=== PATIENT | male | born 1970 ===

== ENCOUNTER 2024-06-27 13:59 | Outpatient (AMB) | payer MEDICAID, SELFPAY ==
--- NOTE | 2024-06-27 14:30 | HO.SPINEOV ---
Intake Visit Reasons: spinal stenosis Intake Note: Mr. Ling is here today c/o neck,elbow and knee pain. Stogy Roller Required: No Allergies No Known Allergies Allergy (Verified 06/27/24 14:31) Assessment & Plan Assessment & Plan (1) Cervical disc disorder: Code(s): M50.90 - Cervical disc disorder, unspecified, unspecified cervical region Category: Medical Plan Dear Dr Hampton, Thank you for referring Mr Ling to our office today. He is a 54-year-old gentleman with a history of an ACDF C6-7 by in 2016. He did well after that surgery. About a year ago he started to notice neck pain on both sides of his neck. He also has been noticing intermittent elbow pain. The 2 things do not connect to each other in the sense that it radiates down from his neck to his elbow. Rather, just seems to be too symptoms that present at the same time. It is more pronounced in the morning and in the evenings. Throughout the day seems to be okay. He has been on morphine extended release and morphine instant release to help. It does give him some relief. He has been on Advil with the as well. No conservative treatment attempted at this point. No myelopathic symptoms. PMH: Hypertension, hep C. He has not been treated yet with a hep C but anticipates doing this soon. He has had a number of different falls that have resulted in traumatic repairs of his right arm in his left hip. Former alcoholic. History of a rib resection and right arm reconstruction. Social hx: Used to be heavy drinker, quit many years ago, takes marijuana edibles daily. Has taken heroin in the past. He does not smoke. Medications: Morphine IR, morphine ER, Ambien and Advil Allergies: None Physical exam: Awake alert oriented no acute distress, has some reduced range of motion of his right shoulder. Strength is good, reflexes are normal, gait is intact. Imaging review: Cervical MRI shows postsurgical changes C6-7. He has a large disc osteophyte which looks chronic the right C4-5 foramen. There some milder changes at C3-4 and C5-6 but nothing significant. Impression: 54-year-old male presents with bilateral neck pain, intermittent pain into his elbows. The pain does not sound radicular. It does not come down from the neck and radiate into the arms. The 2 symptoms seem to be different things. Certainly his neck pain could just be due to the fact that he has postsurgical from an ACDF and he has some other arthritic changes. I am not sure what is causing the elbow pain. The symptoms at this point would not warrant surgery. He could certainly try other conservative measures such as PT, injections etc.. If he starts to develop true radiculopathy down the right arm where he has the nerve compression we can certainly see him back. Thank you for allowing us to care for your patient. The total time spent with this visit with this patient was 45 minutes reviewing history, physical exam, cervical spine imaging review, and implementation of treatment plan or further diagnostic testing Max Perez MD,PhD [facility] Coding Level of Care Code New Pt Level 4 (11132) Diagnoses Cervical disc disorder M50.90
== END 2024-06-27 14:47 | disposition home or self-care (01) ==
PROVIDERS: PCP Family Medicine; Referring Provider Family Medicine; Visit Provider Physician Assistant
DX: M50.90 Cervical disc disorder, unspecified, unspecified cervical region (principal)
CPT/HCPCS: 99204

== ENCOUNTER → 2024-06-27 13:59 | Outpatient (BNVA) | payer MEDICAID, SELFPAY | PROVIDERS: PCP Family Medicine; Visit Provider Physician Assistant | DX: M50.90 Cervical disc disorder, unspecified, unspecified cervical region (principal) | CPT/HCPCS: 99212 ==

== ENCOUNTER 2025-02-27 13:30 | Outpatient (AMB) | payer MEDICAID, SELFPAY ==
[2025-02-27 13:54] VITALS: BP 133/62; PULSE 82; O2SAT 97
--- NOTE | 2025-02-27 13:54 | A.OFFVIS_ITS ---
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 The patient's medical history includes significant trauma from a fall off erika in 2016, resulting in multiple fractures: left hip, shoulder, wrists, and some fingers, and required extensive post-fracture and rehabilitative care. His right shoulder impairment persists with chronic pain and dysfunction following surgery. He underwent anterior cervical discectomies for cervical radiculopathy, at C6-C7 [place] [address] Alaniz at [facility]. Despite surgical intervention, the patient reports continued neck and shoulder pain. His chronic pain syndrome is managed with high doses of opioids, including Fentanyl patches and Mophine IR for breakthrough pain, both prescribed by his PCP, with c ompliance achieved through regular monitoring. The patient additionally reports symptoms suggestive of peripheral neuropathy, although he is not diabetic, possibly due to previous nerve injuries. His mood remains mostly stable, supported by emotional connections with his pet. Patient reports current pain management regime (210 MME/day) has been effective, and allows to him to be less symptomatic and more functional. Patient reports he has tried and failed multiple non-opioid and opioid medications in the past, including Tylenol, Ibuprofen, oxycodone, gabapentin and other NSAIDs with minimal benefit. Patient has been on opioid therapy since 2016 due to traumatic injury s/p fall and multiple surgeries and currently engaged in physical therapy as part of recovery. His medical history also includes basal cell carcinoma left face s/p mohs surgery for which he plans future treatment. Denies any fever or chills, chest pain, shortness of breaths, weakness, constipation, nausea, sedation, dizziness, or urinary retention. Patient uses colace and dietary fiber for occasional constipation. - Onset: Chronic pain since the traumatic fall in 2016, with subsequent surgeries and injury. - Quality/Character: Persistent neck, shoulder, and hip pain. Morning/afternoon rated at 6/10 ad after medication 12/22. - Location: Primarily neck and right shoulder, with hip involvement. - Radiation: Neck pain radiating to the right shoulder. - Aggravating factors: Movements, walking, bending, lifting, twisting, changing positions, cold weather changes, cold applications - Alleviating factors: Opioid therapy, managed with 75 mg fentanyl patches every 72 hours and Morphine IR 15 mg BID prn. - Impact on activities: Significant, impacting daily activities and requiring opioid management. - Affect: Pain impacts the patient's mood, with depression somewhat managed by companionship of a pet. - Analgesia: Currently manages pain with fentanyl patches 75 mg replacing every three days, and 15 mg MSIR BID prn for breakthrough pain. Compliance is confirmed through regular assessments through PCP office. - Adverse Effects: No reported side effects with current medication regimen. - Activities of Daily Living: Pain affects daily function, limiting physical ability, such as shoulder movement. - Aberrant Drug Related Behaviors: No aberrant behaviors noted; compliance monitored through regular urine tests and pill counts. Oswestry Low Back Pain Disability Score=30 (severe disability) [facility] Medical History (Updated 02/28/25 @ 17:19 by LUZMA Rivera) Traumatic injury of hip Hip fracture, left Chronic neck pain Chronic pain of both shoulders Arthritis Dependent drug abuse Basal cell carcinoma of skin Viral hepatitis C Surgical History (Updated 02/28/25 @ 17:00 by LUZMA Rivera) History of cervical discectomy (~2015) H/O shoulder surgery Review of Systems Const Details: - Musculoskeletal: Reports chronic neck, shoulder, and hip pain. - Neurologic: Reports peripheral neuropathy symptoms; denies being diabetic. - Psychiatric: Reports stable mood with decreased depression from therapy pet. - Skin: Denies current symptoms, acknowledges history of basal cell carcinoma. - General: Patient reported quality of life improvements and better functioning on current opioid regime. All systems reviewed & are unremarkable except as noted in HPI and below Physical Exam Vital Signs: Last Vital Signs Pulse 82 02/27/25 13:54 BP 133/62 02/27/25 13:54 Pulse Ox 97 02/27/25 13:54 Oxygen Delivery Method Room Air 02/27/25 13:54 General: Appears afebrile. Alert and oriented. Mood and affect appropriate. Follows and participates in conversation appropriately. Respiratory effort is unlabored. No cough. Able to transition from sit to stand unassisted. Uses cane with ambulation. Ambulates with bilaterally normal heel strike and toe off. Back/Spine/Pelvis Other: Limited lumbar ROM due to pain. Antalgic, slow gait. Uses cane. Painful facet loading bilaterally. Lumbar flexion, axial rotations and extension reproduce moderate pain. Cervical Spine: loss of normal cervical lordosis, cervical muscular tenderness, pain with cervical ROM, Cervical spine scars present and No Cervical spine tenderness Thoracic/Lumbar Spine: thoracic and lumbar spine normal to inspection, pain with thoraco-lumbar ROM, No thoracic spinal tenderness and No lumbar spinal tenderness Sacroiliac joints: bilaterally tender to palpation Extrem General: Yes capillary refill normal, Yes no clubbing, cyanosis or edema and Yes no calf tenderness Right upper extremity: shoulder/upper arm (Well healed scar. Limited ROM due to pain.) Details: normal to inspection, tenderness (global right shoulder) and crepitus; no swelling, no ecchymosis and no unusual warmth Psych Appearance: grossly normal Mental Status: mental status grossly normal Speech and movement: Normal speech and movement present and Clear speech present Affect: normal affect Attitude: cooperative Thought process: Normal thought process present Thought content: Normal thought content present, suicidality (none), no hallucinations and No Depressive thoughts present Insight: Good insight present (Psych) Judgement: Good judgement present (Psych) Personal History of Substance Abuse: Prescription Drugs Age (Sp if 16-45): No History of Preadolescent Sexual Abuse: No Psychological Diseases: Depression Total Score: 6 Risk Category: Moderate Risk Copyright: [facility] Predicting aberrant behaviors Results Reviewed Results Reviewed: MR SHOULDER WITHOUT CONTRAST RIGHT 02/12/24 at [facility] INDICATION: Pain. Rule out avascular necrosis status post ORIF. Fall off erika 5 months ago. Surgery September 2020. COMPARISON: None. TECHNIQUE: Right shoulder MRI was performed without contrast and 6 diagnostic sequences were obtained. FINDINGS: There is plentiful susceptibility artifact from proximal humerus hardware which obscures surrounding anatomy and confounds interpretation. The acromioclavicular joint is congruent. Undersurface of the acromion is curved. Coracoclavicular and coracoacromial ligaments are intact. No fluid is present in the subacromial/subdeltoid bursa. Rotator cuff muscle bulk is preserved. The supraspinatus and infraspinatus tendon footprints are partially obscured by susceptibility artifact. No full-thickness or retracted tendon tear detected. Teres minor and subscapularis tendons are intact. Long head biceps tendon is not well identified, either obscured by artifact, torn or postoperative. The glenohumeral joint is congruent. No joint effusion. The humeral head exhibits flattening and deformity, presumed posttraumatic with areas of subchondral bone plate irregularity (coronal PD image 15). Superimposed superomedial humeral head osteonecrosis is suggested by areas of subarticular intermediate PD signal, though difficult to confirm. There is corresponding foci of partial-thickness and high-grade cartilage loss, particularly along the superomedial humeral head. Osteophytes are evident from the inferior medial aspect of the humeral head. Portions of the humeral head are obscured by susceptibility artifact. The anteroinferior glenoid exhibits posttraumatic deformity with hypertrophic change and spurring (coronal PD images 13 and 14). Anteroinferior glenoid does exhibit ill-definition of the cartilage, compatible with chondrosis. No labral detachment detected, though the anteroinferior labrum is degenerated. Bone signal is normal. No soft tissue collection. IMPRESSION: 1. Exam interpretation confounded by considerable susceptibility artifact from proximal humerus hardware. 2. 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 Superimposed superomedial humeral head avascular necrosis, while suspected, is difficult to confirm. Comparison radiographs and/or CT scan may be of utility. 3. The long head biceps tendon is not well identified, either postoperative, torn or obscured by artifact. 4. No full-thickness or retracted rotator cuff tear detected. Assessment & Plan Assessment & Plan (1) Chronic pain of both shoulders: Code(s): M25.511 - Pain in right shoulder; M25.512 - Pain in left shoulder; G89.29 - Other chronic pain Category: Medical (2) Chronic neck pain: Code(s): M54.2 - Cervicalgia; G89.29 - Other chronic pain Category: Medical (3) Chronic pain syndrome: Code(s): G89.4 - Chronic pain syndrome Category: Medical (4) Opioid contract exists: Code(s): Z79.891 - exterminator helper termite (current) use of opiate analgesic Category: Medical (5) Left hip pain: Code(s): M25.552 - Pain in left hip Category: Medical (6) Peripheral neuropathy: Code(s): G62.9 - Polyneuropathy, unspecified Category: Medical (7) Lumbar spondylosis: Code(s): M47.816 - Spondylosis without myelopathy or radiculopathy, lumbar region Category: Medical Plan Management of the patient's chronic pain will continue with the current opioid regimen of fentanyl patches and Morphine Immediate Release, emphasizing compliance monitored by drug screening and pill counts through his current PCP provider. MassPat reviewed and consistent with patient's history and PCP notes. Moderate Opioid Risk. No recent slip ups reported. Patient denies any recent history of early refill requests, lost prescriptions, or non-adherence to the treatment plan. Patient has Narcan at home. Current pain management regime (210 MME/day) has been effective for him, and allows to him to be less symptomatic and more functional. Patient states he has an increased ability to perform activities of daily living, interact socially and be more functional. The patient educated in great detail about opiate, its proper use and [place] State Law governing its proper use. He also uses marijuana through local dispensary for sleep and pain control. Patient is currently involved with PCP, Orthopedic, Pain Management and physical therapy providers to address his chronic pain syndromes. 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 Communication with other providers involved in the patient's care to ensure a cohesive treatment plan. Discussed formal physical therapy for neck and shoulder pain management. New alternative treatments, such as spinal cord stimulators, temporary nerve stimulation, ITDD pain pump trial and implant, and interventions like radiofrequency ablation, were discussed with the patient. The patient will explore these options for sustained pain improvement with less opioid dependency. All questions and concerns have been answered and patient agreed with the plan. Follow up as needed. Patient was informed and verbally consented to the use of an ambient scribe for clinic note documentation during this visit. Patient Instructions: I discussed with the patient the likely prognosis and various management and treatment options for his chronic pain condition. Opioid therapy will continue under rigorous compliance monitoring, balancing analgesia needs with risk reduction. Potential alternatives and interventions, such as spinal cord stimulators and temporary nerve stimulations, were examined for long-term efficacy with less reliance on opioids. The benefits, risks, and alternatives were explained thoroughly, and consent was obtained for moving forward with the current plan. Patient will discuss interventional treatments with his family at home and notify our office for potential trial of Sprint PNS for chronic right shoulder pain. Patient will continue with physical therapy, and I provided instructions for accessing the digital patient portal for enhanced communication and medical records review. Coding Level of Care Code New Pt Level 4 (03367) Diagnoses Chronic pain of both shoulders M25.511; M25.512; G89.29 Chronic neck pain M54.2; G89.29 Chronic pain syndrome G89.4 Opioid contract exists Z79.891 Left hip pain M25.552 Peripheral neuropathy G62.9 Lumbar spondylosis M47.816
--- OUTSIDE RECORDS SUMMARY | 2025-02-27 13:56 | XMS_ITS | Clinical Summary ---
Author Organization [facility] Address [address] [place] [address] Care Team Providers Care Social Media Content Specialist Name Role Phone Sunny Gotti Primary Care Provider [phone] Allergies No known active allergies Medications No known medications Social History Tobacco Use Types Packs/Day Years Used Date Smoking Tobacco: Never Assessed Sex and Gender Information Value Date Recorded Sex Assigned at Not on file Legal Sex Male 1:29 PM EDT Gender Identity Not on file Sexual Orientation Not on file Last Filed Vital Signs Vital Sign Reading Time Taken Comments Blood Pressure 113/73 01/16/2024 1:26 PM EST Pulse 62 01/16/2024 1:26 PM EST Temperature - - Respiratory Rate - - Oxygen Saturation - - Inhaled Oxygen Concentration - - Weight - - Height - - Body Mass Index - - Plan of Treatment Health Maintenance Due Date Last Done Comments Cologuard 1968 Colon Cancer Screening 1968 Colonoscopy 1968 FOBT / Fit Test 1968 HIV Screening 1968 Hepatitis C Screening 1968 Sigmoidoscopy 1968 Hepatitis B Vaccines (1 of 3 - 19+ 3-dose series) 01/12/1987 Pneumococcal Vaccine: 50+ Ye ars (1 of 1 - PCV) 01/12/2018 Zoster Vaccines (1 of 2) 01/12/2018 DTaP,Tdap,and Td Vaccines (2 - Td or Tdap) 06/12/2018 06/12/2008 COVID-19 Vaccine (3 - 2023- season) 2024, 06/14/2021 Alcohol/Substance Use Screening 11/12/2024 Depression Screening and Follow-Up 11/12/2024 Social Drivers of Health Annual Screening 11/12/2024 Influenza Vaccine (Season Ended) 2025 RSV Vaccine (60+ years old a nd patients) (1 - 1-dose 75+ series) 01/12/2043 Insurance [facility] [place] MEDICAID Care Teams Social Media Content Specialist Relationship Specialty Start Date End Date Sunny Gotti [address] [place] [id number] PCP - General Family Medicine 11/08/23
--- OUTSIDE RECORDS SUMMARY | 2025-02-27 13:56 | XMS_ITS | Data Portability ---
Author Organization [place] [facility], [employer] Address [address] [place] [address] Assessment Encounter Date Assessment Date Assessment LastModified by Organization Details LastModified Time 09/29/2024 09/29/2024 1. Pain Management Post-Surgery - Upcoming Cervical fusion with Dr. Alaniz - Will need increased pain control from current baseline. Will plan on slow taper after 1-2 months after surgery. - Plan: Increase fentanyl patch to 75 mcg/hour and administer morphine 5-6 times a day post-surgery. - Follow-up: Set up telehealth follow-up early next week and nurse check-in on post-surgery. Discussed safe use of meds in detail. - No current substance use of misuse. [email or web address] Not available 10/01/2024 08:14:36 10/28/2024 10/28/2024 Assessment - Chronic pain management with ongoing use of fentanyl patches and morphine sulfate for breakthrough pain. - Post-surgical recovery from anterior cervical discectomy with associated scar tissue formation, no signs of infection. Plan - Prescribe a one-month supply of both fentanyl and morphine. Ensure that the prescriptions are filled and approved by [facility], as indicated in the transcript. - Schedule a follow-up appointment in one month to assess pain management and medication efficacy. - Advise to check with [facility] regarding any issues with medication refills. If problems arise, contact the office for assistance in resolving them with the pharmacy. Prescription - Fentanyl patches 75 mcg, twice a day as needed - Morphine sulfate 15 mg, one-month supply Appointments - Follow-up appointment in one month - Appointment with Dr. Shields tomorrow Assessment - Chronic pain management with ongoing use of fentanyl patches and morphine sulfate for breakthrough pain. - Post-surgical recovery from anterior cervical discectomy with associated scar tissue formation, no signs of infection. Plan - Prescribe a one-month supply of both fentanyl and morphine. Ensure that the prescriptions are filled and approved by [facility], as indicated in the transcript. - Schedule a follow-up appointment in one month to assess pain management and medication efficacy. - Advise to check with [facility] regarding any issues with medication refills. If problems arise, contact the office for assistance in resolving them with the pharmacy. Prescription - Fentanyl patches 75 mcg, twice a day as needed - Morphine sulfate 15 mg, one-month supply Appointments - Follow-up appointment in one month - Appointment with Dr. Shields tomorrow [email or web address] Not available 10/28/2024 11:50:46 12/03/2024 12/03/2024 Assessment - No new assessments or diagnoses were explicitly stated by the doctor during this encounter. Chronic problems and meds reviewed below. Stable, no substance use or abuse. Plan - Continue current medications as they are effective and well-tolerated. - Schedule a follow-up appointment in one month to reassess and discuss any ongoing concerns. Appointments - Follow-up appointment in one month [email or web address] Not available 12/03/2024 13:08:55 01/08/2025 01/08/2025 Assessment - Pain is well-controlled with the current regimen. - No slip-ups reported in recovery. - Follow-up with surgeons and specialists ongoing. - Physical therapy recommended by Dr. Alaniz. Plan - Continue the current pain management regimen. - Monitor pain levels and adjust medication doses if necessary. - Schedule and attend monthly check-ins to monitor progress and address any issues. - Schedule a follow-up appointment. Appointments - Follow-up appointment to be scheduled, with outreach from the office to arrange the date. [email or web address] Not available 01/08/2025 12:54:54 02/11/2025 02/11/2025 Assessment - Chronic pain management issues related to previous injuries, including a two-story fall resulting in significant trauma. - Current challenges with insurance and medication approval processes, particularly with [facility], affecting pain management regimen. - Consideration of transitioning from fentanyl patch to morphine extended release or other alternatives, pending pain management consultation. Plan - Attend the scheduled appointment with pain management on the to address insurance issues related to medication authorization. - Schedule a follow-up appointment after the to discuss the outcome of the pain management consultation and adjust the treatment plan accordingly. Appointments - Appointment with pain management on February 27, 2025 - Follow-up appointment on March 01, 2025 [email or web address] Not available 02/11/2025 12:08:24 Plan of Treatment Reminders Order Date Submit Date Provider Last Modified By Organization Details Last Modified Time Details Appointments NURSE VISIT 2024 01:00P Marah Up LPN Not available Not available Not available Lab None recorded. Referral None recorded. Procedures None recorded. Surgeries None recorded. Imaging None recorded. Medication Orders fentanyl 75 mcg/hr transderm al patch 2024 025 [id number], [address] [place] [address], [id number], 01/08/2025 12:54:30 morphine 15 mg immediate release tablet 2024 025 [id number], [address] [place] [address], [id number], 01/08/2025 12:54:30 fentanyl 75 mcg/hr transderm al patch 2024 025 [id number], [address] [place] [address], [id number], 12/03/2024 11:18:02 morphine 15 mg immediate release tablet 2024 025 [facility], [address] [place] [address], [id number], 12/03/2024 11:18:02 fentanyl 75 mcg/hr transderm al patch 2023 024 [facility], [address] [place] [address], [address], 10/28/2024 11:46:17 morphine 15 mg immediate release tablet 2023 024 [facility], [address] [place], [address], 10/28/2024 11:46:17 fentanyl 75 mcg/hr transderm al patch 2023 024 [facility], [address] [place] [address], [address], 09/29/2024 15:07:03 morphine 15 mg immediate release tablet 2023 024 [facility], [address] [facility], [place], [address], 09/29/2024 15:07:02 Patient TargetsNo targets recorded. Patient Instructions Encounter Date Encounter Id Patient Instructions Last Modified By Organization Details Last Modified Time 10/28/2024 [id number] Based on our discussion, I have outlined the following instructions for you: - Get a one-month supply of both fentanyl and morphine. Make sure that [facility] approves these prescriptions. - Book a follow-up appointment in one month to check how well your pain is being managed and how effective the medication is. - If you have any issues with getting your medication refilled, [facility]. If you still have problems, get in touch with the office for help in sorting them out with the pharmacy. Next appointment(s): - Follow-up appointment in one month - Appointment with Dr. Shields tomorrow Thank you again for your visit, and we look forward to supporting you in your journey to better health. [email or web address] Not available 10/28/2024 11:51:33 Reason for Referral None Reported. Results Created Date Observation Date Name Description Value Unit Range Abnormal Flag Note LastModifiedBy Organization Detail LastModifiedTime 10/07/20 24 10/07/2024 imagi ng/di beatrizos tic resul t No observ ation record ed. [facility] [address] , [place], [address], 10/22/2024 04:18:24 10/07/20 24 10/07/2024 XR, shoul tor, 2 or more view Should er 4 Views Right, Reason : Pain and decrea sed range of motion follow ing a fall COMPAR WM: Right should er radiog raph-1 020. FINDIN GS: No fractu re or disloc ation. Status post surgic al pinnin g of the right proxim al humeru s. Mild glenoh umeral joint space narrow ing and margin al spurri ng. Mild degene rative change s of the AC joint. The portio n of the clavic le includ ed on the exam is normal . Partia lly visual ized surgic al hardwa re in the inferi or cervic al spine. IMPRES NIGHAT: 1. No acute fractu re or disloc ation. 2. Mild degene rative change s of the right should er joint. 3. Postsu rgical appear ance of the proxim al humeru s. I have person ally review ed the images and I agree with this report . WSN: [id number] Orderi ng Physic champ: Rudolph Hampton Dictat ed By: Todd Zamora MD Dictat ed Date/T raffi: 4:05 pm Review ed By: Nayely martínez MD, Jimbo Baires Signed By: Nayely martínez MD, Jimbo Baires Signed Date/T raffi: 4:10 pm Transc ribed By: BERRY Transc ribed Date/T raffi: 3:56 pm Patien t Class: 5 [email or web address] [facility] [address] [place] [address], [id number], 10/08/2024 12:00:12 Result Notes None recorded. Problems Name Problem SNOMED Code Status Onset Date Resolution Date Notes Provider Name and Address Organization Details Recorded Time Viral hepatitis C 07031998 Active 2023 JED TRACY PA-C [address] [facility] [address], [place], [address], [place] [facility] 4 05:29:31 Dependent drug abuse 4078534 Active 2023 JED TRACY PA-C 55 [facility], [facility] [address], [place], [address], [place] [facility] 4 05:29:40 Basal cell carcinoma of skin 502421063 Active 2023 s/p moh's surgery JED TRACY PA-C 55 [facility], [facility] [address], [place], [address], [place] [facility] 4 05:29:54 Excision of cervical interverte bral disc Active 2023 JED TRACY PA-C 55 [facility], [facility] [address], [place], [address], [place] [facility] 4 05:30:04 Arthritis 5825191 Active 2023 JED TRACY PA-C 55 [facility], [facility] [address], [place], [address], [place] [facility] 4 05:30:17 Chronic neck pain 148651183979 7 Active 2023 JED TRACY PA-C 55 [facility], [facility] [address], [place], [address], [place] [facility] 4 05:32:45 Shoulder joint pain 059380463 Active 2023 JED TRACY PA-C 55 [facility], [facility] [address], [place], [address], [place] [facility] 4 05:37:19 Problem Notes None recorded. Procedures Surgical History None recorded. Imaging Results Imaging Date Name Status LastModified by Organiz ation Details LastModified Time 10/07/2024 imaging/diag nostic result active [facility] [address] [place], [address], 10/22/2024 04:18:24 10/07/2024 XR, shoulder, 2 or more view completed [email or web address] [facility] [address] [place], [address], 10/08/2024 12:00:12 Procedure Notes None recorded. Medical Equipment None Reported. Allergies No known drug allergies Medications Name Sig Start Date Stop Date Status Note LastModified by Organization Details LastModified Time fentanyl 50 mcg/hr transdermal patch APPLY 1 PATCH EVERY 72 HOURS BY TRANSDERM AL ROUTE FOR 28 DAYS. 12/03 completed Not Available Not Available Not Available clonidine HCl 0.1 mg tablet TAKE 1 TABLET BY MOUTH THREE TIMES A DAY FOR 7 DAYS 03/07 completed Not Available Not Available Not Available acetaminoph en 325 mg tablet PLEASE SEE ATTACHED FOR DETAILED DIRECTION S 03/07 completed Not Available Not Available Not Available morphine ER 30 mg tablet,exte nded release TAKE 1 TABLET BY MOUTH THREE TIMES A DAY FOR 28 DAYS 08/11 completed Not Available Not Available Not Available sulfamethox azole 800 mg-trimetho prim 160 mg tablet TAKE 1 TABLET BY MOUTH EVERY 12 HOURS FOR 5 DAYS 08/11 completed Not Available Not Available Not Available lisinopril 10 mg tablet TAKE 1 TABLET BY MOUTH EVERY DAY active Not Available Not Available No t Available docusate sodium 100 mg capsule TAKE 1-2 TABLETS NEEDED DAILY FOR CONSTIPAT ION 2023 active Not Available Not Available Not Avai lable omeprazole 20 mg capsule,del ayed release 03/07 completed Not Available Not Available Not Available ibuprofen 600 mg tablet PLEASE SEE ATTACHED FOR DETAILED DIRECTION S active Not Available Not Available No t Available zolpidem 10 mg tablet TAKE 1 TABLET BY MOUTH EVERY DAY NEEDED FOR 15 DAYS *DNF 06/05 active Not Available Not Available No t Available morphine 15 mg immediate release tablet TAKE 1 TABLET BY MOUTH TWICE A DAY NEEDED FOR 28 DAYS active Not Available Not Available No t Available fentanyl 75 mcg/hr transdermal patch APPLY 1 PATCH BY TRANSDERM AL ROUTE EVERY 72 HOURS active Not Available Not Available No t Available ondansetron 4 mg disintegrat ing tablet PLACE 1 TABLET BY TRANSLING UAL ROUTE EVERY 6 TO 8 HOURS FOR 7 DAYS 03/07 completed Not Available Not Available Not Available amoxicillin 875 mg-potassiu m clavulanate 125 mg tablet TAKE 1 TABLET BY MOUTH EVERY 12 HOURS FOR 5 DAYS 03/07 completed Not Available Not Available Not Available oxycodone 5 mg tablet TAKE 1 TABLET BY MOUTH EVERY 6 HOURS NEEDED FOR SEVERE PAIN FOR 3 DAYS 03/07 completed Not Available Not Available Not Available oxycodone 10 mg tablet 03/07 completed Not Available Not Available Not Available GaviLyte-G 236 gram-22.74 gram-6.74 gram-5.86 gram oral solution PLEASE SEE ATTACHED FOR DETAILED DIRECTION S 03/07 completed Not Available Not Available Not Available Suboxone 8 mg-[address] 2 FILMS EVERY DAY BY SUBLINGUA L ROUTE FOR 7 DAYS. 03/07 completed Not Available Not Available Not Available naloxone 4 mg/actuatio n nasal spray ADMINISTE R 1 SPRAY INTO ONE NOSTRIL. CALL 911. REPEAT AFTER 2-3 MIN IF NO/MINIMA L RESPONSE NEEDED 03/07 completed Not Available Not Available Not Available Vitals Date Recorded Body height Body mass index (BMI) Body weight Oxygen saturation Oxygen saturation in Arterial blood by Pulse oximetry Heart rate Systolic blood pressure Diastolic blood pressure Provider Name and Address Organization Details Last Updated DateTime 4 185.42 cm 29.5 kg/m2 769003. 2 g 99 % 99 % 84 /min 130 mm[Hg] 68 mm[Hg] Della Damaris [place] [facility] 4 11:22:39 Date Recorded Body height Body mass index (BMI) Body weight Oxygen saturation Oxygen saturation in Arterial blood by Pulse oximetry Heart rate Systolic blood pressure Diastolic blood pressure Provider Name and Address Organization Details Last Updated DateTime 5 185.42 cm 28.7 kg/m2 78770.6 4 g 99 % 99 % 77 /min 134 mm[Hg] 70 mm[Hg] Della Damaris [place] [facility] 5 11:01:48 Date Recorded Body height Body mass index (BMI) Body weight Oxygen saturation Oxygen saturation in Arterial blood by Pulse oximetry Heart rate Systolic blood pressure Diastolic blood pressure Provider Name and Address Organization Details Last Updated DateTime 5 185.42 cm 28.9 kg/m2 04473.1 3 g 98 % 98 % 72 /min 132 mm[Hg] 74 mm[Hg] Della Damaris [place] [facility] 5 11:43:32 Social History None recorded. Functional Status None recorded. Mental Status None recorded. Family History Nothing Reported. Medical History No medical history recorded. Immunizations Vaccine Type Date Status Note Provider Nam e and Address Organization Details Recorded Time COVID-19, mRNA, LNP-S, PF, 100 mcg/0.5mL dose or 50 mcg/0.25mL dose 06/14/2021 completed Della Damaris null, [place] [facility] 03/26/2024 11:13:47 COVID-19, mRNA, LNP-S, PF, 100 mcg/0.5mL dose or 50 mcg/0.25mL dose 07/12/2021 completed Della Damaris null, [place] [facility] 03/26/2024 11:13:47 Tdap 06/12/2008 completed Della Damaris null, [place] [facility] 03/26/2024 11:13:47 Past Encounters Encounter ID Performer Location Encounter Start Date Encounter Closed Date Diagnosis/Indication Diagnosis SNOMED-CT Code Diagnosis ICD10 Code Diagnosis Note [id number] JED TRACY PA-C Main Office [address] [place] [address] [address] [place] [address] 03/07/2024 10:28:20 03/07/2024 11:01:15 Patient new to provider [id number] 72996 Z76.89 Patient new to practice, here to establish care. Has not been seen by this office or provider within the last 3 years. Dependent drug abuse 652 5002 F19.20 Reports being previously managed on morphine for chronic pain (although [facility] shows intermitte nt oxycodone and suboxone since 2021). Currently using IV heroin and cocaine. Hoping to restart safe pain management . Chronic neck pain 551150 8463 107 M54.2 Followed/m anaged by Dr. Taylor in [facility]. History of cervical discectomy . Chronic pain 92184611 G8 9.29 Shoulder joint pain 2679 20038 M25.519 Reports needing reverse shoulder reconstruc tion surgery. [id number] Rudolph Hampton DO Main Office [address] [place] [address] [place] [address] 03/26/2024 11:13:10 03/26/2024 11:54:23 History of cervical discectomy 9309657858 0670379 Z98.890 History of fracture of hip due to traumatic event 6955745237 48366 Z87.81 Opioid dependence 933541 00 F11.20 [id number] Rudolph Hampton DO Main Office [address] [place] [address] [address] [place] [address] 04/02/2024 12:54:16 04/02/2024 13:31:50 Medication monitoring 255118407 Z51.81 Dr Hampton in to discuss urine results with patient. Will follow up in 1 week regarding pain management History of fracture of hip due to traumatic event 0601628899 45054 Z87.81 Dependent drug abuse 652 5002 F19.20 Shoulder joint pain 2679 80377 M25.519 [id number] Rudolph Hampton DO Main Office [address] [place] [address] [address] [place] [address] 04/09/2024 12:53:09 04/09/2024 13:20:05 Medication monitoring 399604070 Z51.81 Constipation 59395273 K5 9.00 History of fracture of hip due to traumatic event 6879295393 47468 Z87.81 A duplicate Morphine 30mg ER Rx is already at patient's pharmacy. Patient held off on picking up Rx until discussing with care team. 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 Patient is requesting only 15mg IR at this time. [facility] checked. [id number] Rudolphanushka Hampton DO Main Office [address] [facility],[address] [place] [address] 04/23/2024 13:36:18 04/23/2024 14:19:57 Medication monitoring 366877411 Z51.81 Shoulder joint pain 2679 22906 M25.519 Primary insomnia 4184189 F51.01 History of fracture of hip due to traumatic event 2263881802 96940 Z87.81 [id number] Rudolphanushka Hampton DO Main Office [address] [place], [place] [address] [address] [place] [address] 05/07/2024 13:35:13 05/07/2024 13:52:09 Medication monitoring 113009923 Z51.81 History of present illness- Started medication on the , which led to a decrease in previously high numbers- Reports of managed painAllerg iesNo changes in allergiesC urrent medication s- Lisinopril started on the - Morphine 30mg extended release three times a day- Morphine 15mg immediate release three times a day- Zolpidem (Amiodaron e) as neededAsse ssmentImpr ovement in condition after starting Lisinopril Plan- Continue with current medication - Possible paperwork for work walking across parking lotPrescri ption- Lisinopril - Morphine 30mg extended release- Morphine 15mg immediate release- Zolpidem (Amiodaron e) as neededICD- 10 codes (2)- Essential (primary) hypertensi on [I10]- Pain, unspecifie d [R52] [id number] Tiffany Stockton RN Main Office [address] [facility],[address] [place] [address] 05/26/2024 08:43:08 05/26/2024 09:34:41 Medication monitoring 565812433 Z51.81 History of fracture of hip due to traumatic event 1237691435 26744 Z87.81 Dependent drug abuse 652 5002 F19.20 Moderate r ecurrent major depression 84974262 F33.1 Cervical d isc disorder with radiculopathy 514518958 M50.10 [id number] Caroline Pimentel NP Main Office [address] [place] [address],[address] [facility] [place] [id number] 06/16/2024 08:56:30 06/16/2024 09:15:29 Medication monitoring 337033047 Z51.81 Chief complaint- Decreased effectiven ess of current medication - Waking up sick after taking medication at 9:00 PM- Pain in elbows, arms, burning in feet, severe pain in neck, headaches Past surgical historyPat ient has undergone five surgeries in the past six months Social history- Patient recently got a puppy- Patient also has a rescue kitten Current medication s- Current medication is morphine, taken three times a day- Medication is not lasting the full 8 hours as expected- Patient has used fentanyl patches in the past Imaging resultsRec ent MRI conducted, results not yet discussed with patient Assessment - Patient's symptoms and decreased effectiven ess of current medication suggest a need for adjustment in treatment plan- MRI results need to be reviewed by a provider for further assessment Plan- Discuss MRI results with covering provider in absence of Dr. Hampton- Consider potential surgical interventi on based on MRI results and consultati on with simulation specialist - Adjust medication plan upon return of Dr. Hampton Prescripti on- Current prescripti on of morphine is due to run out- Plan to propose refill of prescripti on for another two to three weeks [address] Dr[address] Hampton returns Appointmen ts- Referral appointmen t scheduled for 27 of June at 2:00 PM- Follow-up appointmen t with Dr. Hampton to be scheduled upon his return ICD-10 codes (5)- Pain in right arm [M79.601]- Pain in left arm [M79.602]- Pain in joints of right hand [M25.541]- Pain in left elbow [M25.522]- Gastro-eso phageal reflux disease without esophagiti s [K21.9] History of fracture of hip due to traumatic event 5938267990 19107 Z87.81 [id number] Rudolphanushka Hampton DO Main Office [address] [place] [address],[address] [place] [address] 07/07/2024 13:41:35 07/07/2024 14:09:59 Chronic neck pain 4436884236 107 M54.2 Spinal stew nosis in cervical region 46139059 M48.02 Abscess of finger of left hand 7426957019 2617725 L02.512 History of fracture of hip due to traumatic event 8896683397 19107 Z87.81 Primary insomnia 1836442 F51.01 [id number] Rudolph Hampton DO Main Office [address] [place] [address],[address] [place] [id number] 08/11/2024 12:48:31 08/11/2024 13:17:17 History of fracture of hip due to traumatic event 2640087110 19107 Z87.81 Dependent drug abuse 652 5002 F19.20 [id number] Rudolphanushka Hampton DO Main Office [address] [place] [address] [address] [place] [address] 08/21/2024 11:05:44 08/21/2024 11:21:45 Medication monitoring 982196751 Z51.81 History of present illness- Patient reported issues with a patch coming off and being lost, potentiall y due to the presence of a puppy.- Patient cut a second patch in half and used it, then applied a full patch which is currently on.- Patient uses a Band-Aid over the patch to prevent it from coming off. Social historyPat ient has a puppy named Jose. Current medication s- Patient is using a patch, details not specified. - Patient mentioned previous use of morphine. Plan- Plan to dispense a one-month supply of the transderma l patch.- Follow-up appointmen t scheduled in a month. Prescripti Annita month's supply of the patch to be sent in. Appointmen tsFollow-u p appointmen t in a month. ICD-10 codes (0) History of fracture of hip due to traumatic event 3115568411 76135 Z87.81 Dependent drug abuse 652 5002 F19.20 Shoulder joint pain 2679 48276 M25.519 Chronic neck pain 933133 0962 107 M54.2 [id number] Rudolph Hampton DO Main Office [address] [place] [address] [address] [place] [address] 09/24/2024 09:27:18 09/24/2024 10:06:35 Constipation 35325753 K59.00 History of fracture of hip due to traumatic event 3842951131 89380 Z87.81 Chronic neck pain 137638 2739 107 M54.2 Spinal stew nosis in cervical region 75074347 M48.02 Degenerati ve joint disease of shoulder region 72790060 M19.019 [id number] Rudolph Hampton DO Main Office [address] [place] [address] [address] [place] [address] 09/29/2024 14:31:39 09/29/2024 16:12:53 History of fracture of hip due to traumatic event 3939205275 67720 Z87.81 Chronic neck pain 854466 9054 107 M54.2 Shoulder joint pain 2679 25907 M25.519 Dependent drug abuse 652 5002 F19.21 [id number] Rudolph Hampton DO Main Office [address] [place] [address] [place] [address] 10/28/2024 11:15:48 10/28/2024 11:51:18 History of fracture of hip due to traumatic event [id number] 99372 Z87.81 Cervical radiculopathy 45450284 M54.12 Surgical i ncision wound of skin 8878542594 00 R23.8 no sign infection [id number] Rudolph Hampton DO Main Office [address] [place] [address] [address] [place] [address] 12/03/2024 10:53:58 12/03/2024 11:26:00 Polysubstance dependence 20625946 F19.20 Moderate r ecurrent major depression 14002791 F33.1 History of fracture of hip due to traumatic event [id number] 81667 Z87.81 Dependent drug abuse 652 5002 F19.21 [id number] Rudolph Hampton DO Main Office [address] [place] [address] [address] [place] [address] 01/08/2025 12:34:15 01/08/2025 13:06:45 Chronic neck pain 7123712545 107 M54.2 Dependent drug abuse 652 5002 F19.21 History of cervical discectomy 5578530992 1684036 Z98.890 History of fracture of hip due to traumatic event 9654700288 73321 Z87.81 [id number] Rudolph Hampton DO Main Office [address] [facility],[address] [place] [address] 02/11/2025 11:37:36 02/11/2025 12:19:20 Chronic neck pain 5915784838 107 M54.2 Dependent drug abuse 652 5002 F19.21 Essential hypertension 19058510 I10 Health Concerns Section Related Observation LastModified by Organization Detai ls LastModified Time None Recorded Concern Status LastModified by Organization Details LastModified Time None Recorded Advance Directives Directive None Recorded Payers Encounter Date Sequence Insurance Name Policy Number Policy Davis Covered Member ID Davis Member ID Guarantor Name 09/29/2024 1 [place] [facility] Yoel Ling [id number] Yoel Choule 10/28/2024 1 [place] [facility] Yoel Ling [id number] Yoel Ling 12/03/2024 1 [place] [facility] Yoel Ling [id number] Yoel Ling 01/08/2025 1 [place] [facility] Yoel Ling [id number] Yoel Ling 02/11/2025 1 [place] [facility] Yoel Ling [id number] Yoel Ling Notes Date Note Type Note Provider Name and Address Organization Details Recorded Time 09/29/2024 text/html Yoel Ling is a 54-year-old male who presents with concerns about managing pain following surgery. He reports ongoing issues with pain control and expresses a desire to ensure effective management. The current plan involves temporarily increasing the dosage of fentanyl patches and morphine to better manage the post-surgical pain, with the intention of tapering back to the current dosage over the next few months. There are no additional symptoms or relevant past medical history provided at this time. Rudolph Hampton DO [address] [facility], [address], [place], [address], [place] - [facility] 10/01/2024 08:14:53 10/28/2024 text/html - Yoel Ling, 54 years old - Follow-up visit scheduled for tomorrow - Recently returned from [place] - Pain management issues with medication supply; ran out of 75s, still had some 50s left - 75s were more helpful for breakthrough pain - Insurance approved morphine for a month, but issues with pharmacy ([facility]) regarding medication supply - Incision site has scar tissue, no signs of infection - Underwent two anterior cervical discectomies - No current physical therapy, advised to stay active with daily activities like walking the dog- Yoel Ling, 54 years old - Follow-up visit scheduled for tomorrow - Recently returned from [place] - Pain management issues with medication supply; ran out of 75s, still had some 50s left - 75s were more helpful for breakthrough pain - Insurance approved morphine for a month, but issues with pharmacy ([facility]) regarding medication supply - Incision site has scar tissue, no signs of infection - Underwent two anterior cervical discectomies - No current physical therapy, advised to stay active with daily activities like walking the dog Rudolph Hampton, [address] [place] [address], [address], [place] - [facility] 10/28/2024 11:52:05 12/03/2024 text/html - Yoel Ling, 54 years old - Discussed confusion regarding prescription history and refill timing for morphine in October - Morphine refill was delayed until November 06 due to a weekend and scheduling issues - No current concerns with substance use - Graduated from follow-up with surgeon, next visit possibly in six months - Routine blood work was done before surgery, but no recent blood work available - Last full physical was conducted last fall Rudolph Hampton, [address] [facility] [address], [address], [place] - [facility] 12/03/2024 13:09:21 01/08/2025 text/html Yoel Ling, 54-year-old male - Pain management is currently effective. - No recent slip-ups reported. - No follow-ups with surgeons or specialists mentioned. - Engaged in physical therapy as part of recovery. Rudolph Hampton DO [address] [facility], [address], [address], [place] - [facility] 01/08/2025 12:56:21 02/11/2025 text/html - Yoel Anuradha, 55-year-old male. - History of a rare fungal infection requiring surgical intervention. - Experiencing issues with insurance and pharmacy regarding medication approval and supply. - Currently using a fentanyl patch for pain management, effective for 72 hours, but facing administrative hurdles with [facility]. - Previous use of morphine for pain management, discontinued due to inconvenience and withdrawal issues. - Pain primarily in hip and shoulder, related to a past injury from a two-story fall onto a backhoe trailer, resulting in a crushed hip. - Has an appointment with pain management on the for further evaluation and management. Rudolphanushka Hampton, DO [address] [facility], [facility] [address], [place], [address], [facility] - [facility] 02/11/2025 15:08:03
--- OUTSIDE RECORDS SUMMARY | 2025-02-27 13:56 | XMS_ITS | Referral Summary ---
Author Organization [facility] Address [address] [place] [address] Care Team Providers Care Char House Supervisor Name Role Phone Sunny Gotti Primary Care Provider [phone] Allergies No known active allergies Medications No [...] Mass Index - - Plan of Treatment Not on file Insurance [facility] [place] Care Teams Char House Supervisor Relationship Specialty Start Date End Date Sunny Gotti [address] [place] [id number] PCP - General Family Medicine 11/08/23
--- OUTSIDE RECORDS SUMMARY | 2025-02-27 13:57 | XMS_ITS | Data Portability ---
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 Med. & Rehab Unavailable BRODERICK SANCHES Primary Care Provider Unavailabl e Assessment No assessment recorded. Plan of Treatment Reminders Order Date Submit Date Provider Last Modified By Organization Details Last Modified Time Details Appointments None recorded. Lab None recorded. Referral None recorded. Procedures None recorded. Surgeries None recorded. Imaging electroca rdiogram 2014 015 [facility], [address] [place] [address], [address], 5 11:24:45 electroca rdiogram 2014 015 [facility], [address] [place] [address], [address], 5 15:56:13 Medication Orders oxycodone 15 mg tablet 2014 015 [facility], [address], [place], [id number], 6 07:39:41 nicotine 14 mg/24 hr daily transderm al patch 2014 015 [facility], [address], [place], [id number], 5 11:18:56 oxycodone 15 mg tablet 2014 015 [facility], [address], [place], [id number], 6 07:39:40 ibuprofen 800 mg tablet 2014 015 [facility], [address] [place], [id number], 5 11:19:35 Colace 100 mg capsule 2014 015 [facility] #66961, [address] [place], [id number], 5 15:56:17 senna 8.6 mg tablet 2014 015 [facility] #45990, [address] [place], [id number], 5 15:56:20 nicotine 14 mg/24 hr daily transderm al patch 2014 015 [facility] #45353, [address] [place], [id number], 5 14:43:33 oxycodone 15 mg tablet 2014 015 [facility], [address] [place] [place], [id number], 6 07:39:40 nicotine 14 mg/24 hr daily transderm al patch 2014 015 [facility] #46898, [address] [place], [id number], 5 11:22:23 Patient TargetsNo targets recorded. Patient Instructions Encounter Date Encounter Id Patient Instructions Last Modified By Organization Details Last Modified Time 01/04/2015 [id number] I am aware of e inpatient facility discharge medications, the medication list above has been reconciled with those medications and reflects my understanding of an up to date medication list for this patient. [email or web address] Not available 01/04/2015 10:38:13 01/14/2015 [id number] I am aware of [facility] inpatient facility discharge medications, the medication list above has been reconciled with those medications and reflects my understanding of an up to date medication list for this patient. [email or web address] Not available 01/14/2015 14:02:49 01/26/2015 [id number] Well Visit, Ages 18 to 65: Care Instructions [email or web address] Not available 01/26/2015 16:10:04 My Health To Do List As we discussed and agreed upon at your visit please work on the following: [email or web address] Not available 01/26/2015 15:56:14 Reason for Referral None Reported. Results Created Date Observation Date Name Description Value Unit Range Abnormal Flag Note LastModifiedBy Organization Detail LastModifiedTime 02/02/20 15 02/01/2015 elect rocar diogr am Result RBBB, QTC 448 Not Available [address], [address], 02/01/2015 10:21:31 01/27/20 15 01/26/2015 elect rocar diogr am Result RBBB qtc 450 Not Available [address], [address], 01/26/2015 14:43:17 01/27/20 15 elect rocar diogr am No observ ation record ed. [email or web address] Not Available 02/01 10:40:28 02/02/20 15 elect rocar diogr am No observ ation record ed. [email or web address] Not Available 02/01 10:41:04 09/27/20 20 09/27/2020 XR, elbow , 3 or more view No observ ation record ed. [address], [address], 09/28/2020 08:06:12 09/27/2009/27/2020 XR, wrist , 3 or more view No observ ation record ed. [address], [address], 09/28/2020 08:06:12 09/27/2001 1009/27/2020 XR, shoul tor, 2 or more view No observ ation record ed. [address], [address], 09/28/2020 08:06:12 09/27/20 20 09/27/2020 CT, shoul tor No observ ation record ed. [address], [address], 09/28/2020 08:06:13 Result Notes None recorded. Problems Name Problem SNOMED Code Status Onset Date Resolution Date Notes Provider Name and Address Organization Details Recorded Time Anxiety state 630723068 Active Not Available [facility] 3 03:15:36 Opioid dependence in remission 667414781 Active Flip Lee PA-C [address] [place] [address], [id number] , [facility] 3 11:54:22 Continuous opioid dependence 743206024 Active Flip Lee PA-C [address] [place] [address], [phone] , [facility] 4 11:19:27 Chronic hepatitis C 776534369 Active Cindy Fan MD [address] [place] [address], [phone] , [facility] 5 15:56:13 Tobacco user 479414659 Active Cindy Fan MD [address] [place] [address], [phone] , [facility] 5 11:18:56 Problem Notes None recorded. Procedures Surgical History Date Name Laterality Status Provider Name and Address Organization Details Recorded Time 01/27/20 15 Smoking cessation counseling completed Marta Bradshaw MA [facility] 01/26/2015 15:08:29 01/04/20 15 Post hospital/SNF follow-up/Transi tional Care completed Maryanne Bello LPN [facility] 01/04/2015 10:38:13 01/04/20 15 Transitional care completed Maryanne Bello LPN [facility] 01/04/2015 10:38:13 03/08/20 12 Smoking cessation counseling completed Layne Galeana MA [facility] 03/08/2012 08:55:08 Imaging Results Imaging Date Name Status LastModified by Organization Details LastModified Time 01/26/2015 electrocardiogram completed Informa tion not available 02/01/2015 10:40:28 02/01/2015 electrocardiogram completed Informa tion not available 02/01/2015 10:41:04 09/27/2020 XR, elbow, 3 or more view completed [address], [address], 09/28/2020 08:06:12 09/27/2020 XR, wrist, 3 or more view completed [address], [address], 09/28/2020 08:06:12 09/27/2020 XR, shoulder, 2 or more view completed [address], [address], 09/28/2020 08:06:12 09/27/2020 CT, shoulder completed [address], [address], 09/28/2020 08:06:13 Procedure Notes None recorded. Medical Equipment None Reported. Allergies Allergen ID Allergen Name Allergen Category Reaction Reaction Severity Criticality Documentation Date Start Date Code Code System Note Provider Name and Address Organization Details Recorded Time 082430 propofol medicatio n other moderate Not available 08/06/2014 8782 RxNorm think s he was given too much too fast, cause d inten se burni ng pain Flip Lee PA-C [address] [place], [address] [place] [address] 4 12:34:08 Medications Name Sig Start Date Stop Date Status Note LastModified by Organization Details LastModified Time clonidine HCl 0.1 mg tablet take 1 tablet by mouth twice a day if needed for anxiety WITHDRAWL active Not Available Not Available No t Available nicotine 14 mg/24 hr daily transdermal patch APPLY 1 PATCH TOPICALLY DAILY active Not Available Not Available No t Available Stool Softener 100 mg capsule take 1 capsule by mouth three times a day if needed active Not Available Not Available No t Available ibuprofen 800 mg tablet take 1 tablet by mouth three times a day with meals active Not Available Not Available No t Available senna 8.6 mg tablet take 2 tablets by mouth once daily if needed FOR 15 DAYS active Not Available Not Available No t Available fluconazole 200 mg tablet take 2 tablet by mouth once daily active Not Available Not Available No t Available meloxicam 15 mg tablet take 1 tablet by mouth once daily active Not Available Not Available No t Available clonazepam 1 mg tablet Take 1 tablet as needed by oral route at bedtime. active Not Available Not Available No t Available sulfamethox azole 800 mg-trimetho prim 160 mg tablet active Not Available Not Available Not Available oxycodone 15 mg tablet take 1 tablet by mouth every 6 hours if needed active Not Available Not Available No t Available clonidine HCl 0.2 mg tablet take 1 tablet by mouth twice a day active Not Available Not Available No t Available hydromorpho ne 2 mg tablet take 1 tablet by mouth every 4 hours for 2 days then 1/2 tablet every 4 hours for 3 days active Not Available Not Available No t Available dicyclomine 20 mg tablet Take 1 tablet 4 times a day by oral route as needed for stomach cramps or diarrhea. 07/30 completed Not Available Not Available Not Available cephalexin 500 mg capsule active Not Available Not Available Not Available ranitidine 150 mg tablet take 1 tablet by mouth twice a day active Not Available Not Available No t Available oxycodone 5 mg capsule Take 2 capsules every 4 hours by oral route. 12/25 completed Not Available Not Available Not Available fluoxetine 10 mg capsule active Not Available Not Available Not Available pramipexole 0.125 mg tablet take 1 tablet by mouth twice a day if needed for RESTLESS LEGS active Not Available Not Available No t Available Mapap (acetaminop hen) 325 mg tablet Take 3 tablets every 8 hours by oral route as needed. active Not Available Not Available No t Available gabapentin 100 mg capsule take 1 capsule by mouth three times a day active Not Available Not Available No t Available ibuprofen 600 mg tablet Take 1 tablet every 6 hours by oral route. active Not Available Not Available No t Available ondansetron 4 mg disintegrat ing tablet Take 1 tablet every 8 hours by oral route for 2 days. 09/03 completed Not Available Not Available Not Available Vistaril 50 mg capsule Take 1 capsule 4 times a day by oral route as needed for anxiety. 2012 active Not Available Not Available Not Avai lable oxycodone 5 mg tablet take 2 tablet by mouth every 4 hours active Not Available Not Available No t Available hydroxyzine pamoate 25 mg capsule take 1 capsule by mouth four times a day if needed for anxiety WITHDRAWL active Not Available Not Available No t Available senna-docus ate sodium 8.6 mg-50 mg tablet Take 1 tablet twice a day by oral route. 2014 active Not Available Not Available Not Avai lable Suboxone 8 mg-[address] 2 tablets every day by sublingua l route. 07/30 completed Not Available Not Available Not Available acamprosate 333 mg tablet,chloé yed release take 2 tablets by mouth three times a day active Not Available Not Available No t Available hydromorpho ne 2 mg 1 every 4 hours 12/25 completed Not Available Not Available Not Available GaviLyte-N 420 gram oral solution use as directed active Not Available Not Available No t Available Senexon-S 8.6 mg-50 mg tablet take 2 tablets by mouth twice a day if needed active Not Available Not Available No t Available Suboxone 8 mg-2 mg sublingual film DISSOLVE 2 FILMS UNDER THE TONGUE ONCE DAILY active Not Available Not Available No t Available Suboxone 2 mg-0.5 mg sublingual film TAKE 3 FILMS UNDER THE TONGUE DAILY active Not Available Not Available No t Available Suboxone 12 mg-3 mg sublingual film TAKE 1 FILM UNDER THE TONGUE DAILY active Not Available Not Available No t Available Vitals Date Recorded Body height Body mass index (BMI) Body weight Body temperature Oxygen saturation Oxygen saturation in Arterial blood by Pulse oximetry Heart rate Systolic blood pressure Diastolic blood pressure Provider Name and Address Organization Details Last Updated DateTime 5 181.61 cm 30.8 kg/m2 079218. 24550 g 98.3 [degF] 96 % 96 % 66 /min 122 mm[Hg] 84 mm[Hg] Maryanne Bello LPN [facility] 5 10:40:49 Date Recorded Body height Body mass index (BMI) Body weight Oxygen saturation Oxygen saturation in Arterial blood by Pulse oximetry Heart rate Body temperature Systolic blood pressure Diastolic blood pressure Provider Name and Address Organization Details Last Updated DateTime 5 181.61 cm 30.7 kg/m2 491405. 72856 g 94 % 94 % 70 /min 97.5 [degF] 112 mm[Hg] 70 mm[Hg] Maryanne Bello LPN [facility] 5 13:22:07 Date Recorded Body height Body weight Heart rate Body mass index (BMI) Body temperature Systolic blood pressure Diastolic blood pressure Provider Name and Address Organization Details Last Updated DateTime 5 179.705 cm 064339. 92589 g 68 /min 31 kg/m2 98.4 [degF] 120 mm[Hg] 82 mm[Hg] Marta Bradshaw MA [facility] 5 15:08:29 Date Recorded Body height Body weight Heart rate Body mass index (BMI) Body temperature Systolic blood pressure Diastolic blood pressure Provider Name and Address Organization Details Last Updated DateTime 5 179.705 cm 528197. 82828 g 70 /min 31 kg/m2 97.9 [degF] 130 mm[Hg] 90 mm[Hg] Marta Bradshaw MA [facility] 5 10:36:00 Date Recorded Body weight Body mass index (BMI) Body height Heart rate Body temperature Systolic blood pressure Diastolic blood pressure Provider Name and Address Organization Details Last Updated DateTime 5 935726. 27569 g 31.7 kg/m2 179.705 cm 80 /min 98.2 [degF] 118 mm[Hg] 78 mm[Hg] Marta Bradshaw MA [facility] 5 10:56:26 Social History Question Answer Notes LastModified by Organizat ion Details LastModified Time Tobacco Smoking Status Current Every Day Smoker 1 or 2 a day 02/01/15 LILLIAN Lopez [facility] 03/08/2012 08:53:55 What Is Your Level Of Caffeine Consumption? Moderate Information not available 03/08/2012 How Much Tobacco Do You Chew? None Information not available 03/08/2012 What Type Of Diet Are You Following? REGULAR Information not available 03/08/2012 Which Illicit Or Recreational Drugs Have You Used? Marijuana Hx IVDU, Heroin [email or web address] Information not available 03/08/2012 Education 2 Year College Information not available 03/08/2012 What Is Your Occupation? Unemployed Information not available 03/08/2012 Are There Any Guns Present In Your Home? No Crossbow Information not available 03/08/2012 Live Alone Or With Others? With Others Cate Dyson- Life Partner Information not available 03/08/2012 Marital Status Domestic Partner Cate Dyson- Life Partner [email or web address] Information not available 01/26/2015 Mosquito Repellent Used Routinely Yes Information not available 03/08/2012 How Many Children Do You Have? 1 Vanessa 1987 Information not available 03/08/2012 Seat Belts Used Routinely Yes Information not available 03/08/2012 Are You Sexually Active? No Information not available 03/08/2012 Smoke Alarm In Home Yes Information not available 03/08/2012 At What Age Did You Start Smoking Tobacco? 10 Information not available 03/08/2012 General Stress Level Medium Information not available 03/08/2012 Do You Use Sunscreen Routinely? Yes Information not available 03/08/2012 Sex: Unknown Functional Status None recorded. Mental Status None recorded. Family History Relationship Description Onset Age of this Age Resolved Age Notes LastModified by Organization Details LastModified Time Maternal Grandfather Myocardial infarction 65 CABG, IACD [email or web address] [id number] Not available 06/23/2013 03:01:21 Paternal Grandfather Myocardial infarction 45 [email or web address] [id number] Not available 06/23/2013 03:01:21 Maternal Grandmother Malignant neoplastic disease 72 unclea r what kind (previ ously record ed as Cancer ) [email or web address] [id number] Not available 06/23/2013 03:01:21 Mother Alive [email or web address] Not available 09/08/2013 14:45:48 Notes:Paternal uncle, PA age 42 Medical History Condition Response Substance Abuse Y NEUROLOGIC Y Anxiety Y MUSCULOSKELETAL Y Chronic Neck Pain Y Alcoholism Y Immunizations Vaccine Type Date Status Note Provider James washburn and Address Organization Details Recorded Time Tdap 06/12/2008 completed LILLIAN Lopez MA [facility] 03/08/2012 08:45:27 Past Encounters Encounter ID Performer Location Encounter Start Date Encounter Closed Date Diagnosis/Indication Diagnosis SNOMED-CT Code Diagnosis ICD10 Code Diagnosis Note [id number] [facility], OFFICE [address] [facility] [place] [id number] 03/08/2012 08:30:08 03/08/2012 09:40:50 [id number] [facility], OFFICE [address] [facility] [place] [id number] 06/26/2013 11:09:18 06/27/2013 08:47:17 Opioid dependence in remission [id number] Hx IVDU / heroin, several relapses, as long as 2 years sober. Recent relapse for several months, now sober for 1-2 weeks. Shun'd 12-step program, restart therapy, consider restarting suboxone at [facility]. Would recommend naltrexone on followup. Hepatitis B and hepatitis C 702027960 pt is sure he tested positive for hep B, but two testin 2010 on cis were neg (one in 2007 was pos). Will check again today. Hep C was pos twice in 2010, but no viral load done--test ing as below. Disorder o f thyroid gland 93605111 Pt recalls being told in rehab that he had a thyroid problem. Check TSH. [id number] LILLIAN Egan, [facility], OFFICE [address] [facility] t[place], [place] [id number] 09/08/2013 14:31:15 09/08/2013 15:02:38 Continuous opioid dependence 288478287 Hx IVDU / heroin, several relapses, as long as 2 years sober, currently using and does not want suboxone again as it has not stopped him from relapsing. Interested in getting on Vivitrol instead. We will need a PA for this. Today, discussed detoxing from heroin, provided meds as below; also discussed hope-for progressio n from successful detox to naltrexone followed by vivitrol if still having any significan t cravings. Follow up in 3 days for check on w/d sxs, adjust meds. If all well, continue until 7 days from today. Will start naltrexone then, for at least one month, and start process of getting vivitrol after 3 weeks on naltrexone . Follow up 3 days. [id number] Flip Lee, PA-C , [facility], OFFICE [address] [facility] [place] [id number] 02/05/2014 10:44:29 02/05/2014 11:18:49 Continuous opioid dependence 644888321 Hx IVDU / heroin, several relapses, as long as 2 years sober, currently on suboxone x 2 months. He is Interested in getting on Vivitrol instead. I recommende d staying on suboxone for at least 6 months to get well-estab lished in not using heroin. Should also discuss any liver dangers from Vivitrol use given his active hep C. Follow up with me for a PHA in 3 months or so. Chronic hepatitis C 539490382 active, has May appointmen t with DHARMESH FLYNN MD: [address] [facility] [address], . Discuss any contraindi cations for Vivitrol use with him. [id number] Ophelia Lucio LPN , [facility], OFFICE [address] [facility] [place] [address] 07/30/2014 13:02:58 07/30/2014 15:55:02 Knee pain 23867221 left knee, intermitte nt pain for many years. multiple stresses and traumas over the years as well. recommend ice, elevate, no effusion noted. agrees to try meloxicam 15mg 1 daily for 3-4 weeks. if not more stable referreral will be considered Neck pain 24193801 [address] Alaniz. increasing pain right cervical spine to palpation. also intermitte nt. [id number] Vicki Goss, PT Physical Therapy, [address] [place] [id number] 08/06/2014 11:30:48 08/10/2014 10:29:53 Neck pain 88382712 Knee pain 34459392 [id number] Vicki Goss, PT Physical Therapy, [address] [place] [id number] 08/20/2014 11:57:32 08/20/2014 16:22:01 Neck pain 53850932 Knee pain 38274463 [id number] Vicki Goss, PT Physical Therapy, [address] [place] [id number] 08/24/2014 12:33:39 08/25/2014 09:12:29 Neck pain 88986761 Knee pain 16232627 [id number] , [facility], OFFICE [address] [place] [id number] 10/29/2014 14:28:52 10/29/2014 15:01:54 Rib pain 528220720 significan t lump with tenderness on R anterior lower medial ribs. Suspect bony callus from healing fracture. Will check x-ray to verify. Contact pt via portal with result. [id number] Maty sparks , [facility], OFFICE [address] [place] [address] 11/30/2014 13:48:46 11/30/2014 14:28:00 Mass of chest wall 337621187 Lumpy area rt anterior chest wall in area of lower ribs/carti shannon P. Since lumpy area has been expanding over the past 2-3 months, and pain is worse, will evaluate with CT scan. [id number] Akira David MD , [facility], OFFICE [address] [place] [id number] 12/03/2014 15:52:19 12/03/2014 16:43:47 Mass of chest wall 770189327 to ED for CT and eval tonight [id number] Mary Amin RN , [facility], OFFICE [address] [place] [id number] 12/22/2014 13:06:12 12/22/2014 13:33:26 Mass of chest wall 770671544 going into [facility] tomorrow for more definitive rx/ drainage/ explorator y?/hx opiate abuse and used suboxone in past/ he looking for temp relief for pain but expects thoracic surgery will manage pain after surgery/ he plans to get back on suboxone after this illness settled/ rxd oxy #25 which should be plenty for now!! [id number] Sheila Kirkpatrick , [facility], OFFICE [address] [place] [id number] 01/04/2015 10:28:52 01/04/2015 11:08:49 Tobacco user 854505794 Abscess [id number] hosp records reviewed/ growing yeast from process? not completely clear etiology/ whether he will need systemic rx/ has ID consult involved as well//stab le w oxycodone 15 q3h/ gave him 30 more today to get to apt later this week/will see thoracic surg [facility] / getting wound vac changed re VNA q 48 hrs [id number] Akira David MD FP, [facility], OFFICE [address] [facility] [place] [id number] 01/14/2015 13:13:03 01/14/2015 14:02:55 Tobacco user 558346478 Abscess [id number] hosp records reviewed/ yeast in cult/ I spoke to ID doc/ they are going to rx Diflucan orally at high dose 400/d for many months so will let ID see him and put plan in place/ will need weekly EKG here for first few weeks on azole/ also weekly LFTs and BMP and CBC thru [facility] so ID doc can monitor/ /stable w oxycodone 15 q3h/ given rxd by Surgery for next week or more at 8/ day/ will return here for first visit w new dPCP/ we could do his EKGs [id number] Broderick Sanches MD FP, [facility], OFF[facility] [address] [facility] [place] [id number] 01/26/2015 14:38:16 01/26/2015 15:53:32 Adult health examination 584040571 see Risk Assessment and Lifestyle Change Counseling section above Mr. Julian's main focus is healing of chest wall abscess and adherence to fluconazol e We agreed to defer health maintenanc e for several months as a result, but did acknowledg e his significan t efforts with smoking cessation Counseling 803441696 Abscess of chest wall 02472898 Culture (+) for trina albicans continue fluconazol e as per Dr. Wilson - QTc 450 today Wound care through VNA in place Note some erythema today that may be new - pt to review with real estate analyst and will call Dr. Wilson if persists Need to manage pain and titrate off opiods - Mr. Rutledge will diary pain med use over next few days and we will review needs next week - goal off to NSAIDs/antonio taminophen Constipation 13243624 In setting of opiod use trial Colace daily in effort to use fewer doses of senna - senna prn for now Smoker 53134113 Chronic hepatitis C 719473372 Reassess treatment options once chest wall abscess healed/flu conazole course complete [id number] Broderick Sanches MD FP, [facility], OFFICE [address] [place] [address] 02/01/2015 10:17:04 02/01/2015 11:24:45 Abscess [id number] Mr. Ling is healing well, tolerating diflucan, is not exhibiting signs of super-infe ction, and is handling dressing changes on his own He has been spacing out his opiod pain meds over the last week with success, and is motivated to cut down on the dose more today We agreed to try 7.5 mg oxycodone q4-6 hours, along with TID ibuprofen 1 week (aware of moderate diflucan-N SAID interactio n risk) We will f/u in 1 week to repeat an EKG for QTC monitoring and to address pain medication titration [id number] Broderick Sanches MD , [facility], OFF[address] [place] [phone] 02/08/2015 10:45:10 02/08/2015 11:21:42 Tobacco user [id number] Using patch 1-2 cig/day Abscess [id number] Mr. Lobo salcido is healing well, tolerating diflucan, is not exhibiting signs of super-infe ction, and is handling dressing changes on his own Had some difficulty further spacing out his opiod pain meds over the last week due to pain, no major withdrawal Is still motivated to cut down on the dose, and we will try to do so slowly a bit more slowly We agreed to try 15 mg oxycodone q6 hours, along with TID ibuprofen 1 week (aware of moderate diflucan-N SAID interactio n risk) We will f/u in 1 week Health Concerns Section Related Observation LastModified by Organization Detai ls LastModified Time None Recorded Concern Status LastModified by Organization Details LastModified Time None Recorded Advance Directives Directive None Recorded Payers Encounter Date Sequence Insurance Name Policy Number Policy Davis Covered Member ID Davis Member ID Guarantor Name 01/04/2015 1 [facility] [place] [employer] [place] [employer] [place] (MEDICAID HMO) [id number] Yoel Ling [id number] Yoel Ling 01/14/2015 1 [facility] (MEDICAID HMO) [id number] Yoel Ling [id number] Yoel Ling 01/26/2015 1 [facility] (MEDICAID HMO) [id number] Yoel Ling [id number] Yoel Ling 02/01/2015 1 [facility] (MEDICAID HMO) [id number] Yoel Ling [id number] Yoel Ling 02/08/2015 1 [facility] (MEDICAID HMO) [id number] Yoel Ling [id number] Yoel iLng Notes Date Note Type Note Provider Name and Address Organization Details Recorded Time 01/14/2015 text/html Patient started complaining of rt anterior rib pain last September, noted a lump in the area, has had several ER visits and has been seen here, last CXR was normal, no fractures, has been told he has costochondritis or perhaps an healing rib fractures, but he has had no trauma. He has a remote history of MRSA septicemia. Is here today because the rt anterior rib pain became worse over the weekend, and the entire area is now more swollen. Hurt to talk a deep breath or to move. No fever or chills, feels well. Only other complaint is a sore rt thumb, which he hit with a hammer and is red, and the nail is bruised. Akira David MD [address] [place] [address], [phone], [facility] 01/14/2015 15:24:06 01/26/2015 text/html Pmhx chonic HCV, hx opiod abuse in remission (last heroin 05/2014, participated in suboxone program/clean slate), cervical DJD/Anterior disc dissection s/p hardware 2007. smoker - HCV (GT1, tx na? ? ?ve, followed by Dr. Flynn, no evidence of cirrhosis or HCC on CT) - Dx 08/2014 with chest wall mass/abscess - cultures (+) for trina albicans, s/p CT surgery and wound vac (removed 01/20/2015) - now being followed by ID in [place] to complete 6-8 months fluconazole, then possible repeat surgery Pain was being managed by surgeon - reports now being transferred here - rx'd oxycodone 15 mg q3 hours prn - pain is overall improving, using only 6/day max currently - motivated to get off opiods Does have some constipation - uses senna prn Has overlook [facility]NA for wound care three times/week Has partner, Cate who is involved with his care and supportive Now smoking only 1-2 cigs/day Not currently drinking No drugs currently no recent f/c, no new CP, no SOB, no new rash, no n/v/d, no dysuria, no hematuria Broderick Sanches MD [address] [place] [address], [phone], [facility] 01/26/2015 17:11:26 02/01/2015 text/html Pmhx chonic HCV, hx opiod abuse in remission (last heroin 05/2014, participated in suboxone program/clean slate), cervical DJD/Anterior disc dissection s/p hardware 2007. smoker, HCV (GT1, tx na? ? ?ve, followed by Dr. Flynn, no evidence of cirrhosis or HCC on CT) - Dx 08/2014 with chest wall mass/abscess - cultures (+) for trina albicans, s/p CT surgery and wound vac (removed 01/20/2015) - now being followed by ID in [place] to complete 6-8 months fluconazole, then possible repeat surgery - here today to review healing progress, pain management, and QTC on fluconazole: - no longer has VNA - was determined able to handle own dressing changes and wound is healing well - erythema last week felt related to dressing and not new infection - energy level is improving - constipation is improved - taking colace and senna as needed - sees CT surg and ID doctor this week - no recent f/c, no new CP, no SOB, no new rash, no n/v/d - Pain control took last dose of oxycodone this AM: pain is worst in AM like a hornet's nest - burning stinging - has been taking 15mg oxycodone with relief at 6 AM (pain level 7/10) then at ~10 AM takes another 15mg oxycodone (pain level 4/10) then at 2 PM takes another 15mg oxycodone (pain level 4/10) then at 6 PM takes another 15mg oxycodone (pain level 4/10) then at 10 PM takes another 15mg oxycodone (pain level 4/10) Also has occasional middle of the night pain and has been using 15 mg oxycodone for that as well - has only needed to do this once since last visit Mr. Ling wonders if we can decrease pain to 7.5 mg q4-6 hours and use ibuprofen to bridge - prefers this to acetaminophen Keeps oxycodone in dresser - no kids in house, not sharing/selling meds Denies use of other drugs Broderick Sanches MD [address] [place] [address], [phone], [facility] 02/01/2015 16:58:19 02/08/2015 text/html Managed pain in last week with difficulty - too much, too quick - had 4/10 pain and 2 AM pain with 7.5 mg oxycodone + ibuprofen Instead, tried following with success: 15mg TID with ibuprofen AM/PM x several days with success Has been trying to stop EtOH bc of LFT abnl on fluconazole Pain level today is 4/10 Per ID consult, wound is healing well No f/c, no redness/erythema/swe lling At peak pain control was on 8 tabs 15 mg oxycodone/day and feels took too big a step down Mr. Rutledge proposes today to continue 15mg oxycodone qid x 1 week and then reassess, will continue ibuprofen TID as well I really want to get off this Denies selling/sharing meds affirms he stores it safely denies pruritis, constipation Broderick Sanches MD [address] [place] [address], [phone], [facility] 02/08/2015 17:48:21
== END 2025-02-27 14:14 | disposition home or self-care (01) ==
LOC: HO.PMC 13:30
PROVIDERS: PCP Family Medicine; Visit Provider Nurse Practitioner Family
DX: M25.511 Pain in right shoulder (principal); M25.512 Pain in left shoulder; G89.29 Other chronic pain; M54.2 Cervicalgia; G89.4 Chronic pain syndrome; Z79.891 Long term (current) use of opiate analgesic; M25.552 Pain in left hip; G62.9 Polyneuropathy, unspecified; M47.816 Spondylosis without myelopathy or radiculopathy, lumbar region
CPT/HCPCS: 99204

== ENCOUNTER → 2025-02-27 13:30 | Outpatient (BNVA) | payer MEDICAID, SELFPAY | PROVIDERS: PCP Family Medicine; Visit Provider Nurse Practitioner Family | DX: M25.511 Pain in right shoulder (principal); M25.512 Pain in left shoulder; M54.2 Cervicalgia; G89.4 Chronic pain syndrome; G62.9 Polyneuropathy, unspecified; M25.552 Pain in left hip; M47.816 Spondylosis without myelopathy or radiculopathy, lumbar region; Z79.891 Long term (current) use of opiate analgesic | CPT/HCPCS: 99212 ==